=== PATIENT | female | born 1965 | race Caucasian/White ===

== ENCOUNTER → 2017-07-29 | Outpatient (CLI) | payer OTHER ==
--- NOTE | 2017-07-30 11:48 | MM ---
Reason for exam: screening (asymptomatic). Last mammogram was performed 1 year and 11 months ago. History: Patient history of other cancer. Family history of breast cancer in paternal grandmother. Physical Findings: A clinical breast exam by your physician is recommended on an annual basis and results should be correlated with mammographic findings. MG 3D Screening Mammo W/Cad Bilateral CC and MLO view(s) were taken. Prior study comparison: August 24, 2015, bilateral MG screening mammo w CAD. June 02, 2011, mammogram, performed at [facility]. Upper outer quadrant intramammary lymph node as seen on exam of 08/24/15. No suspicious abnormality. No significant changes when compared with prior studies. ASSESSMENT: Benign, BI-RAD 2 RECOMMENDATION: Routine screening mammogram of both breasts in 1 year.
== END | disposition home or self-care (01) ==
LOC: RADMAMWWP 16:59
PROVIDERS: ATTEND Obstetrics & Gynecology
DX: Z12.31 Encounter for screening mammogram for malignant neoplasm of breast (principal)
CPT/HCPCS: 77063; G0202

== ENCOUNTER → 2017-08-10 | Outpatient (CLI) | payer OTHER ==
--- NOTE | 2017-08-10 19:30 | US ---
EXAMINATION TYPE: US transvaginal DATE OF EXAM: 08/10/2017 COMPARISON: None CLINICAL HISTORY: 51-year-old female T83.32XA lost IUD String. Pt states physician unable to visualiz e IUD strings on examination TECHNIQUE: Transvaginal (TV) Date of LMP: 07/15/2017 FINDINGS: Uterus: Retroverted measuring 8.6 x 5.5 x 5.9 cm. Questionable calcifications in the cervix could re present sequela of prior infection or instrumentation. Endometrial Stripe: 1.1 cm with a small amount of fluid along the uterine cavity. Right Ovary: 3.3 x 2.8 x 2.0 cm with a 1.8 cm hypoechoic lesion with peripheral vascularity, likely a corpus luteum. Left Ovary: 2.6 x 1.8 x 1.5 cm No evident adnexal abnormality or cul-de-sac free fluid. IMPRESSION: 1. Retroverted uterus. Trace fluid along the fundal uterine cavity. An IUD is not confidently identif ied. Consider abdominal radiograph to assess for the presence of an IUD. 2. Questionable calcifications in the cervix could represent sequela of prior infection or instrument ation.
== END | disposition home or self-care (01) ==
LOC: RADUSWWP 14:33
PROVIDERS: ATTEND Obstetrics & Gynecology
DX: N85.4 Malposition of uterus (principal); T83.32XA Displacement of intrauterine contraceptive device, initial encounter
CPT/HCPCS: 76830

== ENCOUNTER → 2020-06-29 | Outpatient (CLI) | payer OTHER ==
--- NOTE | 2020-06-29 15:22 | US ---
EXAMINATION TYPE: US thyroid st tissue head/neck DATE OF EXAM: 06/29/2020 COMPARISON: NONE CLINICAL HISTORY: E04.9 GOITER. Feels lump in throat; feels like incomplete swallow; hoarseness GLAND SIZE: Right Lobe: 3.9 x 1.0 x 1.1 cm Overall Parenchyma: homogenous Left Lobe: 4.0 x 0.8 x 1.2 cm Overall Parenchyma: homogeneous Isthmus Thickness: 0.3 cm NODULES RIGHT: # of nodules measured on right: 0 LEFT: # of nodules measured on left: 0 ISTHMUS: # of nodules measured in the isthmus: 0 Bilateral neck scanned, no evidence of lymphadenopathy. IMPRESSION: Normal thyroid ultrasound
== END | disposition home or self-care (01) ==
LOC: RADUSWWP 14:18
PROVIDERS: ATTEND Internal Medicine
DX: E04.9 Nontoxic goiter, unspecified (principal)
CPT/HCPCS: 76536

== ENCOUNTER → 2021-02-01 | Outpatient (CLI) | payer OTHER ==
--- NOTE | 2021-02-04 11:14 | MM ---
Reason for exam: screening (asymptomatic). Last mammogram was performed 3 years and 6 months ago. History: Patient history of other cancer and had first child at age 43. Family history of breast cancer in paternal grandmother at age 50. Took hormonal contraceptives for 2 years beginning at age 25. Physical Findings: A clinical breast exam by your physician is recommended on an annual basis and results should be correlated with mammographic findings. MG 3D Screening Mammo W/Cad Bilateral CC and MLO view(s) were taken. Prior study comparison: July 29, 2017, bilateral MG 3d screening mammo w/cad. August 24, 2015, bilateral MG screening mammo w CAD. The breast tissue is heterogeneously dense. This may lower the sensitivity of mammography. There are benign appearing round calcifications bilaterally. There is no discrete abnormality. ASSESSMENT: Benign, BI-RAD 2 RECOMMENDATION: Routine screening mammogram of both breasts in 1 year.
== END | disposition home or self-care (01) ==
LOC: RADMAMWWP 10:31
PROVIDERS: ATTEND Obstetrics & Gynecology
DX: Z12.31 Encounter for screening mammogram for malignant neoplasm of breast (principal); Z80.3 Family history of malignant neoplasm of breast
CPT/HCPCS: 77063; 77067

== ENCOUNTER → 2021-12-12 | Outpatient (CLI) | payer OTHER ==
--- NOTE | 2021-12-12 12:38 | XR ---
Left shoulder HISTORY: M19.012 3 views of the left shoulder Arthropathy is present at the acromioclavicular joint. Distal acromion is downturned with possible sp ur formation. There is no fracture or dislocation. Left lung apex as visualized is normal. IMPRESSION: Acromioclavicular joint arthropathy, correlate for impingement, consider shoulder MRI
== END | disposition home or self-care (01) ==
LOC: RADXRMAIN 10:07
PROVIDERS: ATTEND Internal Medicine
DX: M12.812 Other specific arthropathies, not elsewhere classified, left shoulder (principal)

== ENCOUNTER → 2022-06-12 | Outpatient (CLI) | payer OTHER ==
--- NOTE | 2022-06-13 07:47 | MM ---
Reason for Exam: Screening (asymptomatic). Last mammogram was performed 1 year(s) and 4 month(s) ago. Patient History: Menarche at age 16. First Full-Term at age 43. Late child-bearing (after 30). Postmenopausal. Patient has history of breast feeding. Other cancer. Hormonal Contraceptives for 2 years from age 25 until age 27. Paternal grandmother had breast cancer, age 50. Risk Values: Clair 5 year model risk: 1.4%. NCI Lifetime model risk: 10.4%. Prior Study Comparison: 08/24/2015 Bilateral Screening Mammogram, [facility]. 07/29/2017 Bilateral Screening Mammogram, [facility]. 02/01/2021 Bilateral Screening Mammogram, [facility]. Tissue Density: The breast tissue is heterogeneously dense. This may lower the sensitivity of mammography. Findings: Analyzed By CAD. Occasional small scattered benign-appearing round calcification bilaterally is redemonstrated. Benign-appearing bilateral axillary lymph nodes are again seen. There is no suspicious group of microcalcifications or new suspicious mass in either breast. Overall Assessment: Benign, BI-RAD 2 Management: Screening Mammogram of both breasts in 1 year. A clinical breast exam by your physician is recommended on an annual basis and results should be correlated with mammographic findings. Electronically signed and approved by: Prince Way M.D.
== END | disposition home or self-care (01) ==
LOC: RADMAMWWP 07:31
PROVIDERS: ATTEND Obstetrics & Gynecology
DX: Z12.31 Encounter for screening mammogram for malignant neoplasm of breast (principal); Z78.0 Asymptomatic menopausal state; Z80.3 Family history of malignant neoplasm of breast
CPT/HCPCS: 77063; 77067

== ENCOUNTER → 2025-01-26 | Outpatient (CLI) | payer OTHER ==
--- NOTE | 2025-01-26 08:36 | MM ---
Reason for Exam: Screening (asymptomatic). Last mammogram was performed 2 year(s) and 8 month(s) ago. Patient History: Menarche at age 16. First Full-Term at age 43. Late child-bearing (after 30). Postmenopausal. Patient has history of breast feeding. Previous chest radiation therapy. Hormonal Contraceptives for 2 years from age 25 until age 27. Paternal grandmother had breast cancer, age 50. Risk Values: Clair 5 year model risk: 1.6%. NCI Lifetime model risk: 9.8%. Prior Study Comparison: 07/29/2017 Bilateral Screening Mammogram, [facility]. 02/01/2021 Bilateral Screening Mammogram, [facility]. 06/12/2022 Bilateral MG 3D screening mammo w/cad, [facility]. Tissue Density: The breasts are heterogeneously dense, which may obscure small masses. Findings: Analyzed By CAD. Benign-appearing bilateral axillary lymph nodes are redemonstrated. There is no suspicious group of microcalcifications or new suspicious mass in either breast. Overall Assessment: Negative, BI-RAD 1 Management: Screening Mammogram of both breasts in 1 year. . Patient should continue monthly self-breast exams. A clinical breast exam by your physician is recommended on an annual basis. This exam should not preclude additional follow-up of suspicious palpable abnormalities. Note on Clair scores and lifetime risk: 1. A Clair score greater than 3% is considered moderate risk. If this is the case, consider specialist referral to assess eligibility for a risk reducing agent. 2. If overall lifetime risk for the development of breast cancer is 20% or higher, the patient may qualify for future screening with alternating mammogram and breast MRI. [facility], , 01/26/2025 7:56 AM. Electronically signed and approved by: Prince Way M.D.
== END | disposition home or self-care (01) ==
LOC: RADMAMWWP 06:56
PROVIDERS: ATTEND Obstetrics & Gynecology
DX: Z12.31 Encounter for screening mammogram for malignant neoplasm of breast (principal); R92.333 Mammographic heterogeneous density, bilateral breasts; Z78.0 Asymptomatic menopausal state; Z80.3 Family history of malignant neoplasm of breast; Z92.0 Personal history of contraception
CPT/HCPCS: 77063; 77067